=== PATIENT | male | born 1985 | race African-American/Black ===

== ENCOUNTER 2021-08-30 18:49 | Emergency (ER) | payer OTHER, BC, SELFPAY ==
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
[2021-08-30 18:48] VITALS: BP 136/86; PULSE 73; RESP 12; TEMP 36.8; O2SAT 100
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
[2021-08-30] MEDS: KETOROLAC (*BKC) 60 MG/2 ML VIAL IM (20:35)
[2021-08-30 20:39] VITALS: BP 138/91; PULSE 65; RESP 18; O2SAT 100
[2021-08-30 21:09] VITALS: BP 132/88; PULSE 66; RESP 16; O2SAT 100
== END 2021-08-30 21:10 | disposition home or self-care (01) ==
PROVIDERS: Emergency Provider Emergency Medicine
DX: S16.1XXA Strain of muscle, fascia and tendon at neck level, initial encounter (principal); S29.9XXA Unspecified injury of thorax, initial encounter; F17.210 Nicotine dependence, cigarettes, uncomplicated; V49.40XA Driver injured in collision with unspecified motor vehicles in traffic accident, initial encounter
CPT/HCPCS: 71046; 71100; 72125; 72128; 96372; 99284; J1885